=== PATIENT | female | born 1945 | race Caucasian/White ===

== ENCOUNTER 2019-08-10 10:26 | Inpatient (IN) ==
[2019-08-10 12:08] LABS: INR 1.1 (0.9-1.1); Prothrombin Time 11.3 Seconds (9.0-12.0)
[2019-08-10 12:09] LABS: Hematocrit (blood only) 36.4 % (37-47); Hemoglobin 11.7 g/dL (12.0-16.0); Mean Corpuscular Hemoglobin 30.1 pg (25-34); Mean Corpuscular Hgb Conc 32.1 g/dL (32-36); Mean Corpuscular Volume 93.6 fL (80-100); RDW Coefficient of Variation 14.9 % (11.5-14.5); RDW Standard Deviation 50.7 fL (36.4-46.3); Red Blood Count 3.89 M/uL (4.2-5.4); White Blood Count 23.72 K/uL (4.8-10.8)
--- NOTE | 2019-08-10 12:09 | XRay Report ---
XR chest 1V portable CLINICAL HISTORY: 73 years-old Female presenting with lightheaded. TECHNIQUE: Portable upright AP view of the chest was obtained. COMPARISON: 03/20/2006. FINDINGS: Atherosclerosis of the aortic arch. Cardiac silhouette top normal in size. Mildly low lung volumes. N o focal opacity. No large effusion or pneumothorax. Degenerative changes of the thoracic spine. Degen erative changes of the glenohumeral joints. Upper abdomen normal. IMPRESSION: 1. Mildly low lung lines. Otherwise no acute cardiopulmonary disease. Electronically signed by: Ben Canada M.D. 08/10/2019 12:07 PM
[2019-08-10 12:12] LABS: BUN Creatinine Ratio 45.4 (10-20); Calcium 8.9 mg/dl (8.5-10.1); Creatinine Clr Calc Pharmacy 81.3 ml/min; Est GFR (African American) 77.7; Potassium 4.1 mmol/L (3.5-5.1)
[2019-08-10 12:23] LABS: Mean Platelet Volume 13.7 fL (7.4-10.4); Platelet Count 107 K/uL (130-400)
[2019-08-10 12:25] LABS: Albumin Globulin Ratio 0.9 (0.9-2); Bilirubin,Total 0.6 mg/dl (0.2-1); Globulin 3.3 gm/dl (2.5-4.0); Thyroid Stimulating Hormone 0.023 uIu/ml (0.300-4.500); Total Protein 6.3 gm/dl (6.4-8.2); Troponin I 0.065 ng/ml (0-0.045)
[2019-08-10] MEDS: SODIUM CHLORIDE 0.9% 1000ML 1,000 ML IV SCH ×3 (12:26→19:58)
[2019-08-10 12:55] LABS: Basophils # (auto) 0.02 K/uL (0-0.2); Basophils % (auto) 0.1 %; Immature Granulocytes # (auto) 0.06 K/uL (0.00-0.02); Immature Granulocytes % (auto) 0.3 %; Lymphocytes # (auto) 15.62 K/uL (1.2-3.4); Lymphocytes % (auto) 65.9 %; Monocytes # (auto) 0.38 K/uL (0.11-0.59); Monocytes % (auto) 1.6 %; Neutrophils # (auto) 7.64 K/uL (1.4-6.5); Neutrophils % (auto) 32.1 %; Smudge Cells Present
[2019-08-10] MEDS ORDERED: IOVERSOL 100ml IV PRN (13:09)
--- NOTE | 2019-08-10 13:23 | CT Scan Report ---
CT abd pelvis IV con only CLINICAL HISTORY: 73 years-old Female presenting with gi bleed, leukocytosis. TECHNIQUE: Multidetector CT of the abdomen and pelvis was performed after the administration of intra venous contrast. IV contrast: 94 mL of Optiray 320. One or more dose lowering techniques were used co nsistent with the principles of ALARA (as low as reasonably achievable), including automatic exposure control, mA or kV adjustment to individual patient size, and/or use of iterative reconstruction. COMPARISON: None. CT DOSE (mGy.cm): The estimated cumulative dose is 1723.29 mGy.cm. FINDINGS: [place] [employer] topogram: Cholecystectomy clips. Lung bases: Normal heart size. Coronary artery and aortic valve calcification. No pericardial or pleu ral effusion. Minimal dependent changes likely atelectasis. Liver: Cirrhotic morphology of the liver with hypertrophy of the left hepatic lobe. Biliary: No intrahepatic or extrahepatic biliary ductal dilatation. Gallbladder surgically absent. Pancreas: Mild parenchymal atrophy. Spleen: Top normal in size measuring 13.1 cm in maximal sagittal dimension. Adrenal glands: Normal. 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 Righ t kidney normal. No nephrolithiasis or hydronephrosis. Ureters nondistended. Bladder: Incompletely evaluated secondary to underdistention. Pelvic organs: Uterus and ovaries normal. Bowel: Normal appendix. No bowel obstruction. Unobstructed small bowel contained within the moderate sized umbilical hernia. Peritoneal cavity: No free fluid or intraperitoneal gas. Lymph nodes: Mildly prominent portal caval and tigre hepatal lymph nodes likely reactive. No patholog ically enlarged lymph nodes in the abdomen or pelvis. Vasculature: Atherosclerosis of the normal caliber abdominal aorta. IVC patent. Paraesophageal and ga stric varices. Abdominal wall: Recanalization of the periumbilical vein. Musculoskeletal: Degenerative changes of the spine. IMPRESSION: 1. Cirrhosis with portal hypertension evidenced by varices and borderline splenomegaly. 2. Prominent gastric varices. This could be a potential site of gastrointestinal hemorrhage. 3. No other evidence of acute intra-abdominal pathology. Electronically signed by: Ben Canada M.D. 08/10/2019 1:22 PM
[2019-08-10] MEDS ORDERED: cefTRIAXone SODIUM 2,000 MG/70 ML BAG IV STA (13:35)
[2019-08-10] MEDS ORDERED: SODIUM CHLORIDE 0.9% 1000ML 1,000 ML IV ONE (13:45)
[2019-08-10 14:00] LABS: POC Urine Bilirubin Negative (Negative); POC Urine Blood 250 (Negative); POC Urine Glucose Normal (Normal); POC Urine Ketones Negative (Negative); POC Urine Leukocytes Negative (Negative); POC Urine Nitrite Negative (Negative); POC Urine Protein Trace (Negative); POC Urine Urobilinogen Normal (Normal); POC Urine pH 5 (4.5-7.5)
[2019-08-10] MEDS ORDERED: PANTOprazole 80 MG in DEXTROSE 5% 100 ML IV SCH (14:15)
[2019-08-10 14:24] LABS: Appearance Urine Clear (Clear); Bacteria Urine Automated Negative (Negative); Bilirubin Urine Negative (Negative); Blood Urine 3+ (Negative); Color Urine Yellow; Epithelial Cell Urine Auto >30 /lpf (0-5); Glucose Urine UA Negative (Negative); Ketones Urine Negative (Negative); Leukocyte Esterase Urine Negative (Negative); Nitrite Urine Negative (Negative); Protein Urine Negative (Negative); Specific Gravity Urine 1.039 (1.000-1.030); Urobilinogen Urine Negative (Negative)
[2019-08-10] MEDS ORDERED: PANTOprazole 40 MG in DEXTROSE 5% 100 ML IV SCH (14:30)
--- NOTE | 2019-08-10 15:17 | History & Physical Report ---
Date of Service August 10, 2019 Assessment & Plan (1) GI bleed: Complaints to have bright red rectal bleed this morning Noted to have black stool on rectal examination that was a strongly positive for blood CT of the abdomen and pelvis showed cirrhotic liver with esophageal and gastric varices Increasing BUN suggest upper GI bleed Epic note suggests that she was on diclofenac sodium as an outpatient Hemoglobin is noted to be 11.7 She will be admitted to telemetry unit H&H will be checked every 6 hourly with type and hold for 2 units Has been started on Protonix drip GI consulted (2) Cirrhosis of liver: No history of alcoholism and no history of prior liver disease Cirrhosis seems to be secondary to fatty liver/idiopathic/Karimi Evidence of esophageal and gastric paresis on CAT scan of the abdomen pelvis LFTs are normal GI consulted (3) Leukocytosis: Noted to have white count of 23,000 Denies any acute infection or fever Could be secondary to UTI and/or stress related Urine and blood culture have been sent She was started with intravenous ceftriaxone and will change it to Cipro Noted to have high lactic acid of 2.8 She has been getting boluses of IV fluid We will repeat the lactate in 6 hours (4) Reflux esophagitis: Has not been taking any medications for that Has been on baby aspirin Epic note says that she has been on diclofenac sodium for arthritis (5) Hypothyroidism: Her TSH is minimally low We will hold thyroxine replacement for now Likely to start thyroxine at 150 mcg a day on discharge (6) Hypertension: Blood pressure is controlled We will continue current medications DVT prophylaxis SCDs for now CODE STATUS Full History of Present Illness Chief Complaint: Dizziness with bright red blood per rectum this morning Primary Care Provider: Bhupinder Warren MD She is a 73-year-old obese female with significant past medical history of major depression, esophageal reflux, and hypertension has been complaining of dizziness early this morning with the bright red blood per rectum following bowel movement. She is much worried about bright red blood per rectum and she thought it could be due to hemorrhoids. She did not have any abdominal pain associated with it but she admits to have occasional epigastric discomfort and she feels that is due to her reflux disease. She denies any nausea and/or vomiting, any black stool before, any chest pain and/or shortness of breath, any chest pain and/or palpitation, any headache or blurred vision or numbness or tingling in the extremities and denies any problem with her urine. No fever but she did have chills with some sweating last night. In the ER she was noted to have leukocytosis with borderline increase lactic acid and CT of the abdomen and pelvis did show cirrhotic liver with esophageal and gastric varices from that point she was admitted to telemetry unit for continuation of care. Allergies Allergy/AdvReac Type Severity Reaction Status Date / Time No Known Allergies Allergy Unknown Verified 08/10/19 11:12 Home Medications Home Medications Medication Instructions Recorded Confirmed Type allopurinol 100 mg PO DAILY@1200 08/10/19 08/10/19 History aspirin 81 mg PO DAILY@1200 08/10/19 08/10/19 History atenolol 100 mg PO DAILY@1200 08/10/19 08/10/19 History hydrochlorothiazide 25 mg PO DAILY@1200 08/10/19 08/10/19 History levothyroxine 175 mcg PO QAM 08/10/19 08/10/19 History lisinopril 20 mg PO DAILY@1200 08/10/19 08/10/19 History paroxetine HCl 20 mg PO DAILY@1200 08/10/19 08/10/19 History Past Med/Surg History Medical History GI bleed Hypertension Hypothyroidism Major depression Reflux esophagitis Family History Other Family history non-contributory Social History Preferred Language: Kittitian marital status: / Current Living Situation: Alone current occupational status: retired Feels Safe at Home: Yes Smoking Status: Former smoker Review of Systems Review of Systems: All systems reviewed & are unremarkable except as noted in HPI & below Physical Exam Physical Exam: Lying in bed, very anxious Constitutional: well developed, well nourished, + ill appearing and + morbidly obese; no acute distress Eyes: PERRL, conjunctivae normal, anicteric sclerae ENMT: external ear and nose normal, oropharynx normal Neck: trachea midline, no thyromegaly Respiratory: normal respiratory effort; no respiratory distress Auscultation: lungs clear to auscultation bilaterally Cardiovascular: Rate/Rhythm: regular rate and regular rhythm Heart Sounds: no murmur Gastrointestinal (Abdomen): Inspection/Auscultation: abdomen normal to inspection and normal bowel sounds Percussion/Palpation: + abdomen tender (Epigastrium) and abdomen soft; no guarding Musculoskeletal: No acute arthritis in any joints Neurologic: patellar DTR's 2+ bilat, sensation intact Psychiatric: A+Ox3, euthymic affect Lymphatic: no cervical or axillary lymphadenopathy Results & Data Vital Signs (Past 12 Hours) Vital Signs Temp Pulse Pulse Resp BP BP Pulse Ox 08/10/19 14:34 91 H 20 130/69 96 08/10/19 13:59 81 20 103/61 96 08/10/19 12:30 85 18 103/76 95 08/10/19 11:19 96 H 20 106/70 96 08/10/19 10:36 36.9 C 86 20 149/80 H 96 Laboratory Results Short CBC 08/10/19 Range/Units 11:38 WBC 23.72 H (4.8-10.8) K/uL Hgb 11.7 L (12.0-16.0) g/dL Hct 36.4 L (37-47) % Plt Count 107 L (130-400) K/uL BMP 08/10/19 11:38 Sodium 142 Potassium 4.1 Chloride 107 Carbon Dioxide 28 BUN 39 H Creatinine 0.86 Glucose 122 H Calcium 8.9 Cardiac Enzymes 08/10/19 Range/Units 11:38 Troponin I 0.065 H* (0-0.045) ng/ml Liver Function 08/10/19 Range/Units 11:38 Total Bilirubin 0.6 (0.2-1) mg/dl AST 23 (15-37) U/L ALT 23 (12-78) U/L Alkaline Phosphatase 59 (45-117) U/L Albumin 3.0 L (3.4-5.0) gm/dl Urine 08/10/19 Range/Units 13:50 Urine Color Yellow Urine Appearance Clear (Clear) Urine pH 5.0 (4.5-7.5) Ur Specific [place] 1.039 H (1.000-1.030) Urine Protein Negative (Negative) Urine Glucose (UA) Negative (Negative) Medications Administered Current Inpatient Medications Sodium Chloride (Nss 1000ml) 1,000 mls @ 250 mls/hr IV .Q4H CHAD Stop: 09/09/19 11:29 Last Admin: 08/10/19 12:26 Dose: 250 mls/hr Documented by: Pantoprazole Sodium 40 mg/ (Dextrose) 100 mls @ 20 mls/hr IV Q5H CHAD Stop: 08/10/19 19:29 Ioversol (Optiray 320 100ml) 94 ml IV ONCE PRN PRN Reason: Interaction Checking Stop: 08/14/19 13:08 Last Admin: 08/10/19 13:10 Dose: 94 ml Documented by: Code Status & VTE Plan VTE Prophylaxis Plan VTE Prophylaxis will be ordered: Yes
[2019-08-10 15:46] LABS: Hematocrit (blood only) 33.1 % (37-47); Hemoglobin 10.6 g/dL (12.0-16.0)
--- NOTE | 2019-08-10 16:00 | Gastrointestinal Consultation ---
Date of Consultation August 10, 2019 Assessment & Plan (1) GI bleed: EGD tomorrow. Will also have pt prep for colonoscopy. If good response to prep then will go forward with colonoscopy tomorrow as well. If poor prep then will consider moving colonoscopy to Wednesday. Present on Admission?: Yes (2) Leukocytosis: Please consider possible UTI or other source of infection. Present on Admission?: Yes Supervising Physician Co-Signing Physician Notes I saw and evaluated the patient with Ms. Rivera. She presents with a single episode of hematochezia this am, no melena, no hematemesis. A CT was obtained and is suggestive of cirrhosis with portal hypertension. PE: Plesant female, NAD No abdominal tenderness No slceral icterus Impression: patient with hematochezia, symptoms most consistent with an anorectal etiology. given the imaging we would recommend furhter evalaution with EGD and colonosocopy. I have disucssed the risks to include bleeding, infection, perforation, pain and need for f/u studies. Recomendations: EGD/colonosocopy on wednesday agree with empiric use of octreotide/PPI drip and abx coverage consider further evalaution with a UA and Chest x-ray to look for signs of infection. History of Present Illness Reason for Consultation: Bright red blood rectally Requesting Physician: Dr. Golden Attending Physician: Dr. Golden History of Present Illness Ms. Suarez is a 73 yr old female patient of Dr. Warren with a hx of major depression, esophageal reflux, and hypertension who presented to the ED this morning for rectal bleeding. She had chills/sweats all last night then this morning, she toileted as she normally would each morning and passed a BM with bright red blood that appeared bright to dark red. She did not have any clots. No abdominal pain or cramping. She did feel dizzy and nauseated while walking to the toilet and during toileting. She was able to dress herself and walk to her sofa. Then she called EMS and they helped her walk to the ambulance. She denies any black BMs and has not had any rectal bleeding previously. On arrival, Hb 11.7. Recheck 10.6. BUN is 39, Cr 0.86. WBC elevated at 23. She is afebrile. A CT was completed which showed cirrhosis and gastric varices. Platelets are 107.She is awake, alert, oriented and normotensive. BP is 76. Pulse ox 97 on room air. On exam: obese, non distended, non tender abdomen. Rectal exam with hemorrhoids with some brown stool on return after digital exam. Allergies Allergy/AdvReac Type Severity Reaction Status Date / Time No Known Allergies Allergy Unknown Verified 08/10/19 11:12 Home Medications Home Medications Medication Instructions Recorded Confirmed Type allopurinol 100 mg PO DAILY@1200 08/10/19 08/10/19 History aspirin 81 mg PO DAILY@1200 08/10/19 08/10/19 History atenolol 100 mg PO DAILY@1200 08/10/19 08/10/19 History hydrochlorothiazide 25 mg PO DAILY@1200 08/10/19 08/10/19 History levothyroxine 175 mcg PO QAM 08/10/19 08/10/19 History lisinopril 20 mg PO DAILY@1200 08/10/19 08/10/19 History paroxetine HCl 20 mg PO DAILY@1200 08/10/19 08/10/19 History Patient History Medical History GI bleed Hypertension Hypothyroidism Major depression Reflux esophagitis Family History Other Family history non-contributory Social History Preferred Language: Lao marital status: / Current Living Situation: Alone current occupational status: retired Feels Safe at Home: Yes Smoking Status: Former smoker Review of Systems Constitutional: + chills, + sweats and + weakness; no body aches Eyes: no eye pain and no itchy eyes no icterus Ear, Nose, Mouth, Throat: + dizziness + sinus congestion Respiratory: no cough, no dyspnea and no wheezing Cardiovascular: no chest pain, no palpitations, no syncope (did not faint but felt dizzy/lightheaded. ) and no edema Gastrointestinal: no abdominal pain, no early satiety, no vomiting, no constipation and no melena Genitourinary: no dysuria, no urinary hesitancy and no hematuria Integumentary: no rash, no lesions, no pruritus and no yellowing of the skin Neurologic: no falls, no numbness and no tremor(s) Psychiatric: no behavioral changes Endocrine: no fatigue, no polydipsia, no polyphagia and no polyuria Physical Exam Constitutional: WD/WN, vitals as above + obese; no acute distress Eyes: PERRL, conjunctivae normal, anicteric sclerae ENMT: external ear and nose normal, oropharynx normal Respiratory: normal respiratory effort, lungs clear to auscultation Cardiovascular: RRR, no murmur, no edema Gastrointestinal (Abdomen): normal bowel sounds, soft, nontender, no hepatosplenomegaly Skin: no rashes, warm and dry Neurologic: PERRL, EOMI, accommodation nl, no face palsy, no dysarthria Psychiatric: A+Ox3, euthymic affect Lymphatic: no cervical or axillary lymphadenopathy Results & Data Vital Signs (Past 12 Hours) Vital Signs Temp Pulse Pulse Resp BP BP Pulse Ox 08/10/19 15:44 62 14 114/80 100 08/10/19 14:34 91 H 20 130/69 96 08/10/19 13:59 81 20 103/61 96 08/10/19 12:30 85 18 103/76 95 08/10/19 11:19 96 H 20 106/70 96 08/10/19 10:36 36.9 C 86 20 149/80 H 96 (1) GI bleed GI bleed type/associated pathology: unspecified gastrointestinal hemorrhage type Qualified Code(s): K92.2 - Gastrointestinal hemorrhage, unspecified (2) Leukocytosis Leukocytosis type: unspecified Qualified Code(s): D72.829 - Elevated white blood cell count, unspecified
[2019-08-10] MEDS: CIPROFLOXACIN 400 MG/200 ML BAG IV SCH (17:26)
[2019-08-10] MEDS ORDERED: LAVAGE SOLUTION 4000ML PO ONE (18:00)
[2019-08-10] MEDS ORDERED: BISACODYL 5 MG TABEC PO ONE (18:00)
[2019-08-10] MEDS: PANTOprazole 40 MG in DEXTROSE 5% 100 ML IV SCH ×2 (19:57→23:03)
[2019-08-10] MEDS ORDERED: INFLUENZA ADMINISTRATION CHARGE ONE (22:00)
[2019-08-10] MEDS ORDERED: INFLUENZA VACCINE HIGH DOSE 65+ 0.5 ML SYR IM ONE (22:00)
[2019-08-11] MEDS: SODIUM CHLORIDE 0.9% 1000ML 1,000 ML IV SCH ×2 (03:45→12:40)
[2019-08-11] MEDS: PANTOprazole 40 MG in DEXTROSE 5% 100 ML IV SCH ×4 (03:45→20:33)
[2019-08-11 04:12] LABS: Hematocrit (blood only) 27.8 % (37-47); Hemoglobin 9.2 g/dL (12.0-16.0); Mean Corpuscular Hemoglobin 30.5 pg (25-34); Mean Corpuscular Hgb Conc 33.1 g/dL (32-36); Mean Corpuscular Volume 92.1 fL (80-100); Mean Platelet Volume 13.5 fL (7.4-10.4); Platelet Count 105 K/uL (130-400); RDW Coefficient of Variation 15.1 % (11.5-14.5); RDW Standard Deviation 50.7 fL (36.4-46.3); Red Blood Count 3.02 M/uL (4.2-5.4); White Blood Count 20.63 K/uL (4.8-10.8)
[2019-08-11 04:19] LABS: BUN Creatinine Ratio 45.4 (10-20); Calcium 8.2 mg/dl (8.5-10.1); Creatinine Clr Calc Pharmacy 152.5 ml/min; Est GFR (African American) 88.8; Est GFR (Non-African American) 76.6; Potassium 3.3 mmol/L (3.5-5.1)
[2019-08-11 04:39] LABS: Basophils # (auto) 0.02 K/uL (0-0.2); Basophils % (auto) 0.1 %; Eosinophils # (auto) 0.01 K/uL (0-0.5); Immature Granulocytes # (auto) 0.05 K/uL (0.00-0.02); Immature Granulocytes % (auto) 0.2 %; Lymphocytes # (auto) 15.47 K/uL (1.2-3.4); Monocytes % (auto) 2.4 %; Neutrophils # (auto) 4.58 K/uL (1.4-6.5); Neutrophils % (auto) 22.3 %
[2019-08-11] MEDS: CIPROFLOXACIN 400 MG/200 ML BAG IV SCH ×2 (06:02→17:34)
--- NOTE | 2019-08-11 09:19 | Hospitalist Progress Note ---
Date of Service August 11, 2019 Assessment & Plan (1) GI bleed: -reports bright red rectal bleed in AM x1 on admission day on 08/10/19 -Noted to have black stool on rectal examination that was a strongly positive for blood -CT of the abdomen and pelvis showed cirrhotic liver with esophageal and gastric varices -concerns for upper GI bleed -Epic note suggests that she was on diclofenac sodium as an outpatient -Hemoglobin is noted to be 11.7 on admission -following CBC closely and on IV protonix -Gastroenterology is following the patient, awaiting upper endoscopy to be performed (2) Cirrhosis of liver: -No history of alcoholism and no history of prior liver disease -Cirrhosis seems to be secondary to fatty liver/idiopathic/Karimi -Evidence of esophageal and gastric paresis on CAT scan of the abdomen pelvis -LFTs are normal -Gastroenterology is following the patient (3) Leukocytosis: possible urinary tract infection -Noted to have white count of 23,000 -leukocytosis possibly from urinary tract infection, other underlying infection, or non-infectious inflammation/stress reaction -Urine with Escherichia coli [place] Count >100,000 CFU/ml -follow blood cultures -was given ceftriaxone in the ED and then changed to ciprofloxacin; will add ceftriaxone for now with the ciprofloxacin and continue to monitor and adjust antibiotics based on culture results Elevated lactic acid -Noted to have high lactic acid of 4.1 on 07/31/19 admission -antibiotics and IV fluids with downtrending lactic acid (4) Reflux esophagitis: -Has not been taking any medications for that -Has been on baby aspirin -Epic note says that she has been on diclofenac sodium for arthritis -currently NPO while awaiting upper endocospy (5) Hypothyroidism: -History of Hypothyroidism and at home on Levothyroxine as 175 mcg daily -However TSH is extremely low as 0.023 -hold off thyroid supplements for now as it appears at this time based on TSH that patient is on too much thyroid supplements -will check free T4 (6) Hypertension: -Blood pressure is controlled -home medications of atenolol 100 mg daily, HCTZ 25 mg daily, and lisinopril 20 mg daily -continuing atenolol and HCTZ for now DVT prophylaxis: SCDs CODE STATUS Full Subjective Patient denies any blood per rectum since coming to the hospital. the blood per rectum was x 1 episode at home. patient denies abdominal pain. denies vomiting. denies diarrhea. no blood with urination. no dizziness. no lightheadedness. Patient currently is NPO while awaiting to be scoped by gastroenterology Review of Systems Review of Systems: All systems reviewed & are unremarkable except as noted in HPI & below Physical Exam Constitutional: + obese and comfortable Eyes: PERRL, conjunctivae normal, anicteric sclerae EOM intact bilaterally ENMT: external ear and nose normal, oropharynx normal Neck: normal visual inspection Respiratory: normal respiratory effort, lungs clear to auscultation Cardiovascular: RRR, no murmur, no edema Gastrointestinal (Abdomen): normal bowel sounds, soft, nontender, no hepatosplenomegaly Musculoskeletal: no cyanosis or clubbing, extremities motor strength 5/5 Head/Neck/Chest: normocephalic and head atraumatic Neurologic: PERRL, EOMI, accommodation nl, no face palsy, no dysarthria CN's II-XI intact bilaterally Psychiatric: A+Ox3, euthymic affect Results & Data Vital Signs (Past 12 Hours) Vital Signs Temp Pulse Pulse Resp BP Pulse Ox 08/11/19 07:36 36.8 C 85 18 106/73 95 08/11/19 03:30 37.1 C 84 18 109/58 L 95 08/11/19 00:27 36.8 C 87 20 105/69 94 08/11/19 00:00 84
[2019-08-11 09:28] LABS: Hematocrit (blood only) 27.8 % (37-47); Hemoglobin 9.1 g/dL (12.0-16.0); Mean Corpuscular Hemoglobin 30.1 pg (25-34); Mean Corpuscular Hgb Conc 32.7 g/dL (32-36); Mean Corpuscular Volume 92.1 fL (80-100); Mean Platelet Volume 12.6 fL (7.4-10.4); Nucleated RBC # (auto) 0.21 K/uL (0-0); Nucleated RBC % (auto) 1.1 %; Platelet Count 89 K/uL (130-400); RDW Coefficient of Variation 15.2 % (11.5-14.5); RDW Standard Deviation 51.1 fL (36.4-46.3); Red Blood Count 3.02 M/uL (4.2-5.4); White Blood Count 18.68 K/uL (4.8-10.8)
[2019-08-11] MEDS: POTASSIUM CHLORIDE / WTR 10 MEQ/100 ML PLCT IV SCH ×2 (09:42→11:21)
--- NOTE | 2019-08-11 10:05 | Gastroenterology Progress Note ---
Date of Service August 11, 2019 Assessment & Plan (1) GI bleed: EGD and colonoscopy today. (2) Leukocytosis: Please consider possible UTI or other source of infection. Supervising Physician Co-Signing Physician Notes I saw and evaluated the patient. We are planning to do upper endoscopy and probable colonoscopy today. It appears that she may have had dark stool last e vening, perhaps this is an upper GI source after all. Hopefully we can determine this with the upcoming exams later today. Subjective Mr. Lillie Suarez is a 73 yr old female with GERD, hypothyroidism, hypotension who was admitted yesterday for rectal bleeding. CT on arrival with previously undiagnosed cirrhosis with gastric varices. Hb 11.7 on arrival, 9.1 this morning. Cr 39->35, normal creatinine. Pt reports clear BMs with bowel prep for EGD/Colonoscopy today. She has remained hemodynamically stable. WBC elevated w/o clear sign/site of infection though she has had a bit of sinus congestion, no cough or chest pressure/pain. She did have brief dizziness at the time of passing one painless bloody BM yesterday, but non since then. BP 106/73 while resting HR 85. Review of Systems Review of Systems: ROS: Gen: one episode of dizziness yesterday w/o syncope Eyes: No eye redness, or pain, no recent vision changes Resp: No SOB, no cough Cardio: No palpitations/irregular beats, no chest pain GI: + rectal bleeding, one episdoe yesterday, No abdominal pain, no nausea/vomiting : Denies pain on urination Skin: No jaundice, itching or new rashes Constitutional: + chills, + sweats and + weakness; no body aches Eyes: no icterus Ear, Nose, Mouth, Throat: + dizziness + sinus congestion Physical Exam Constitutional: WD/WN, vitals as above + obese; no acute distress Eyes: PERRL, conjunctivae normal, anicteric sclerae ENMT: external ear and nose normal, oropharynx normal Respiratory: normal respiratory effort, lungs clear to auscultation Cardiovascular: RRR, no murmur, no edema Gastrointestinal (Abdomen): normal bowel sounds, soft, nontender, no hepatosplenomegaly Skin: no rashes, warm and dry Neurologic: PERRL, EOMI, accommodation nl, no face palsy, no dysarthria Psychiatric: A+Ox3, euthymic affect Lymphatic: no cervical or axillary lymphadenopathy Results & Data Vital Signs (Past 12 Hours) Vital Signs Temp Pulse Pulse Resp BP Pulse Ox 08/11/19 07:36 36.8 C 85 18 106/73 95 08/11/19 03:30 37.1 C 84 18 109/58 L 95 08/11/19 00:27 36.8 C 87 20 105/69 94 08/11/19 00:00 84 Diagnostic Findings CXR: Mildly low lung lines. Otherwise no acute cardiopulmonary disease. CT abd/pelvis with IV contrast only: 1. Cirrhosis with portal hypertension evidenced by varices and borderline splenomegaly. 2. Prominent gastric varices. This could be a potential site of gastrointestinal hemorrhage. 3. No other evidence of acute intra-abdominal pathology. Medications Administered Protonix drip, Cipro (1) GI bleed GI bleed type/associated pathology: unspecified gastrointestinal hemorrhage type Qualified Code(s): K92.2 - Gastrointestinal hemorrhage, unspecified (2) Leukocytosis Leukocytosis type: unspecified Qualified Code(s): D72.829 - Elevated white blood cell count, unspecified
[2019-08-11 10:20] LABS: Basophils # (auto) 0.03 K/uL (0-0.2); Basophils % (auto) 0.2 %; Eosinophils # (auto) 0.01 K/uL (0-0.5); Eosinophils % (auto) 0.1 %; Immature Granulocytes # (auto) 0.03 K/uL (0.00-0.02); Immature Granulocytes % (auto) 0.2 %; Lymphocytes # (auto) 13.62 K/uL (1.2-3.4); Lymphocytes % (auto) 72.9 %; Monocytes # (auto) 0.52 K/uL (0.11-0.59); Monocytes % (auto) 2.8 %; Neutrophils # (auto) 4.47 K/uL (1.4-6.5); Neutrophils % (auto) 23.8 %; Smudge Cells Present
[2019-08-11] MEDS ORDERED: PARoxetine HCl 20 MG TAB PO SCH (12:00)
[2019-08-11] MEDS ORDERED: ATENOLOL 50 MG TABLET PO SCH (12:00)
[2019-08-11] MEDS ORDERED: LISINOPRIL 20 MG TAB PO SCH (12:00)
[2019-08-11] MEDS ORDERED: cefTRIAXone SODIUM 2,000 MG in DEXTROSE 5% 50 ML IV SCH (14:00)
[2019-08-11] MEDS ORDERED: PROPOFOL IV EMULSION 10 MG/ML 20 ML VIAL IV ONE (14:00)
[2019-08-11] MEDS ORDERED: LIDOCAINE HCL 2% 2 ML VIAL/AMP(20MG/ML) INFIL ONE (14:00)
--- NOTE | 2019-08-11 14:02 | Anesthesiology Consultation ---
Date of Service August 11, 2019 Assessment & Plan (1) Encounter for pre-operative examination: Chart Review Chart Review: Acceptable Risk for Surgery and Patient NOT seen in Pre Admission Testing Consults Requested none History Surgery Operation Date: 08/11/19 13:50 Proposed Procedures p Colonoscopy and EGD Dr Tree Leavitt Height/Weight Height: 5 ft 4 in Weight: 135.5 kg Allergies Allergy/AdvReac Type Severity Reaction Status Date / Time No Known Allergies Allergy Unknown Verified 08/10/19 11:12 Medications Home Medications Medication Instructions Recorded Confirmed Last Taken allopurinol 100 mg PO DAILY@1200 08/10/19 08/10/19 08/09/19 aspirin 81 mg PO DAILY@1200 08/10/19 08/10/19 08/09/19 atenolol 100 mg PO DAILY@1200 08/10/19 08/10/19 08/09/19 hydrochlorothiazide 25 mg PO DAILY@1200 08/10/19 08/10/19 08/09/19 levothyroxine 175 mcg PO QA 08/10/19 08/10/19 08/10/19 lisinopril 20 mg PO DAILY@1200 08/10/19 08/10/19 08/09/19 paroxetine HCl 20 mg PO DAILY@1200 08/10/19 08/10/19 08/09/19 Active Medications Generic Name Dose Route Start Last Admin Trade Name Freq PRN Reason Stop Dose Admin Ciprofloxacin 400 mg in 200 mls @ 100 mls/hr 08/10/19 17:00 08/11/19 08:27 Cipro IV 08/15/19 15:29 Infused Q12H CHAD Infusion Protocol Pantoprazole Sodium 40 mg/ 100 mls @ 20 mls/hr 08/10/19 20:00 08/11/19 13:06 Dextrose IV 09/09/19 19:59 20 mls/hr Q5H CHAD Administration Sodium Chloride 1,000 mls @ 125 mls/hr 08/10/19 19:15 08/11/19 12:40 Nss 1000ml IV 08/11/19 19:14 125 mls/hr .Q8H CHAD Administration Ioversol 94 ml 08/10/19 13:09 08/10/19 13:10 Optiray 320 100ml IV 08/14/19 13:08 94 ml ONCE PRN Administration Interaction Checking NPO Date Last Intake of Fluids: 08/10/19 Time Last Intake of Fluids: 23:59 Date Last Intake of Solids: 08/09/19 Time Last Intake of Solids: 18:00 Past Medical History Medical History GI bleed Hypertension Hypothyroidism Major depression Reflux esophagitis Past Family History Family History Other Family history non-contributory Social History Smoking Status: Former smoker Do You Dip or Chew Tobacco: No Hx Alcohol Use: Yes Alcohol type: beer alcohol intake frequency: other Alcohol Intake Frequency Comment: 1-2 12 ounce beers per year Hx Substance Use: No Physical Exam Vital Signs Last Vital Signs Temp 36.5 C 08/11/19 13:57 Pulse 89 08/11/19 13:57 Resp 18 08/11/19 13:57 BP 134/81 08/11/19 13:57 Pulse Ox 97 08/11/19 13:57 Testing Laboratory Results 08/11/19 09:14 08/11/19 03:26 PT 11.3 Seconds (9.0-12.0) 08/10/19 11:38 INR 1.1 (0.9-1.1) 08/10/19 11:38 Urine Color Yellow 08/10/19 13:50 Urine Appearance Clear (Clear) 08/10/19 13:50 Urine pH 5.0 (4.5-7.5) 08/10/19 13:50 Ur Specific [place] 1.039 (1.000-1.030) H 08/10/19 13:50 Urine Protein Negative (Negative) 08/10/19 13:50 Urine Glucose (UA) Negative (Negative) 08/10/19 13:50 Urine Ketones Negative (Negative) 08/10/19 13:50 Urine Nitrite Negative (Negative) 08/10/19 13:50 Ur Leukocyte Esterase Negative (Negative) 08/10/19 13:50 Urine WBC (Auto) 1-5 /hpf (0-5) 08/10/19 13:50 Urine RBC (Auto) 5-10 /hpf (0-4) H 08/10/19 13:50 U Hyaline Cast (Auto) 1-5 /lpf (0-5) 08/10/19 13:50 U Epithel Cells (Auto) >30 /lpf (0-5) H 08/10/19 13:50 Urine Bacteria (Auto) Negative (Negative) 08/10/19 13:50 Blood Type A Negative 08/10/19 15:34 Antibody Screen NEGATIVE 08/10/19 15:34 08/10/19 13:50 Urine Culture - Preliminary Urine,Clean Catch Escherichia coli
[2019-08-11] MEDS ORDERED: ATROPINE SULFATE 0.1 MG/ML 10ML SYR IV PRN (14:05)
[2019-08-11] MEDS ORDERED: ePHEDrine sulfate 50 MG/ML AMP IV PRN (14:05)
--- NOTE | 2019-08-11 14:44 | GI REPORT ---
Patient Name: Lillie Suarez Procedure Date: 08/11/2019 2:08 PM Date of : 1945 Admit Type: Inpatient Age: 73 Gender: Female Attending MD: Matt Leavitt DO Procedure: Colonoscopy Providers: Matt Leavitt DO Referring MD: Matt Leavitt DO Indications: Hematochezia Medicines: Monitored Anesthesia Care Complications: No immediate complications. Estimated blood loss: Minimal. Estimated Blood Loss: Estimated blood loss was minimal. Procedure: Pre-Anesthesia Assessment: - Prior to the procedure, a History and Physical was performed, and patient medications, allergies and sensitivities were reviewed. The patient's tolerance of previous anesthesia was reviewed. - The risks and benefits of the procedure and the sedation options and risks were discussed with the patient. All questions were answered and informed consent was obtained. - Patient identification and proposed procedure were verified prior to the procedure by the physician, the nurse and the broker in charge. The procedure was verified in the procedure room. - Pre-procedure physical examination revealed no contraindications to sedation. - ASA Grade Assessment: IV - A patient with severe systemic disease that is a constant threat to life. - After reviewing the risks and benefits, the patient was deemed in satisfactory condition to undergo the procedure. - The anesthesia plan was to use monitored anesthesia care (MAC). - Immediately prior to administration of medications, the patient was re-assessed for adequacy to receive sedatives. - The heart rate, respiratory rate, oxygen saturations, blood pressure, adequacy of pulmonary ventilation, and response to care were monitored throughout the procedure. - The physical status of the patient was re-assessed after the procedure. After I obtained informed consent, the scope was passed under direct vision. Throughout the procedure, the patient's blood pressure, pulse, and oxygen saturations were monitored continuously. The Colonoscope was introduced through the anus and advanced to the terminal ileum. The colonoscopy was performed without difficulty. The patient tolerated the procedure well. The quality of the bowel preparation was good. Findings: The perianal and digital rectal examinations were normal. Pertinent negatives include normal sphincter tone. The terminal ileum appeared normal. A few medium-mouthed diverticula were found in the sigmoid colon. Internal hemorrhoids were found during retroflexion. The hemorrhoids were mild. The exam was otherwise without abnormality. Impression: - The examined portion of the ileum was normal. - Mild diverticulosis in the sigmoid colon. - Internal hemorrhoids. - The examination was otherwise normal. - No specimens collected. Recommendation: - [facility]. - Repeat colonoscopy in 10 years for screening purposes. Matt Leavitt D.O. Matt Leavitt, 08/11/2019 2:44:10 PM This report has been signed electronically. Note Initiated On: 08/11/2019 2:08 PM Number of Addenda: 0 I attest to the content of the Intraoperative Record and orders documented therein, exceptions below {[id number]}
--- NOTE | 2019-08-11 14:46 | Communication Note ---
Date of Service: August 11, 2019 Patient underwent upper endoscopy and colonoscopy today for question of melena and hematochezia. The colonoscopy was notable for mild diverticulosis and internal hemorrhoids. The upper endoscopy was notable for very large gastric varices that are filling the gastric fundus. Given the history I wonder if the gastric varices were the cause of the patient's bleeding. I would recommend that she be referred to a tertiary center as she may benefit from placement of a TIPS.
--- NOTE | 2019-08-11 14:52 | Anesthesiology Progress Note ---
Date of Service August 11, 2019 Anesthesia Post Procedure Vital Signs Vital Signs: Temp Pulse Pulse Pulse Resp BP BP 08/11/19 14:39 82 18 108/71 08/11/19 13:57 36.5 C 89 18 134/81 08/11/19 11:41 36.8 C 87 18 143/82 H 08/11/19 08:00 78 08/11/19 07:36 36.8 C 85 18 106/73 08/11/19 03:30 37.1 C 84 18 109/58 L 08/11/19 00:27 36.8 C 87 20 105/69 08/11/19 00:00 84 08/10/19 17:15 37.3 C 85 16 127/84 08/10/19 16:17 81 20 123/99 08/10/19 15:44 62 14 114/80 Pulse Ox 08/11/19 14:39 97 08/11/19 13:57 97 08/11/19 11:41 94 08/11/19 08:00 08/11/19 07:36 95 08/11/19 03:30 95 08/11/19 00:27 94 08/11/19 00:00 08/10/19 17:15 16 L 08/10/19 16:17 95 08/10/19 15:44 100 Transfer of Care Handoff Completed per policy Notes Mental Status: alert / awake / arousable Patient Amnestic to Procedure: Yes Nausea / Vomiting: adequately controlled Pain: adequately controlled Airway Patency, RR, SpO2: stable & adequate BP & HR: stable & adequate Hydration State: stable & adequate Anesthetic Complications: no major complications apparent and Pt Satisfied with anesthetic care
[2019-08-11] MEDS ORDERED: OCTREOTIDE ACETATE 100 MCG in SYRINGE 9 ML IV STA (15:09)
[2019-08-11] MEDS ORDERED: OCTREOTIDE ACETATE 500 MCG in 0.9 % SODIUM CHLORIDE 100 ML IV SCH (15:15)
--- NOTE | 2019-08-11 15:28 | Discharge Summary ---
Date of Service August 11, 2019 Admission HPI Per Admitting Provider She is a 73-year-old obese female with significant past medical history of major depression, esophageal reflux, and hypertension has been complaining of dizziness early this morning with the bright red blood per rectum following bowel movement. She is much worried about bright red blood per rectum and she thought it could be due to hemorrhoids. She did not have any abdominal pain associated with it but she admits to have occasional epigastric discomfort and she feels that is due to her reflux disease. She denies any nausea and/or vomiting, any black stool before, any chest pain and/or shortness of breath, any chest pain and/or palpitation, any headache or blurred vision or numbness or tingling in the extremities and denies any problem with her urine. No fever but she did have chills with some sweating last night. In the ER she was noted to have leukocytosis with borderline increase lactic acid and CT of the abdomen and pelvis did show cirrhotic liver with esophageal and gastric varices from that point she was admitted to telemetry unit for continuation of care. Admission Exam Per Admitting Provider Physical Exam Physical Exam: Lying in bed, very anxious Constitutional: well developed, well nourished, + ill appearing and + morbidly obese; no acute distress Eyes: PERRL, conjunctivae normal, anicteric sclerae ENMT: external ear and nose normal, oropharynx normal Neck: trachea midline, no thyromegaly Respiratory: normal respiratory effort; no respiratory distress Auscultation: lungs clear to auscultation bilaterally Cardiovascular: Rate/Rhythm: regular rate and regular rhythm Heart Sounds: no murmur Gastrointestinal (Abdomen): Inspection/Auscultation: abdomen normal to inspection and normal bowel sounds Percussion/Palpation: + abdomen tender (Epigastrium) and abdomen soft; no guarding Musculoskeletal: No acute arthritis in any joints Neurologic: patellar DTR's 2+ bilat, sensation intact Psychiatric: A+Ox3, euthymic affect Lymphatic: no cervical or axillary lymphadenopathy Principal Diagnosis Gastrointestinal bleed, Cirrhosis of liver, Esophageal varices, Hemorrhoids, Leukocytosis, Elevated Lactic Acid, Hypothyroidism, Hypertension Discharge Exam Constitutional + obese and comfortable Eyes PERRL, conjunctivae normal, anicteric sclerae EOM intact bilaterally ENMT external ear and nose normal, oropharynx normal Neck normal visual inspection Respiratory normal respiratory effort, lungs clear to auscultation Cardiovascular RRR, no murmur, no edema Gastrointestinal (Abdomen) normal bowel sounds, soft, nontender, no hepatosplenomegaly Musculoskeletal no cyanosis or clubbing, extremities motor strength 5/5 Head/Neck/Chest: normocephalic and head atraumatic Neurologic PERRL, EOMI, accommodation nl, no face palsy, no dysarthria CN's II-XI intact bilaterally Psychiatric A+Ox3, euthymic affect Discharge Data Allergies Allergy/AdvReac Type Severity Reaction Status Date / Time No Known Allergies Allergy Unknown Verified 08/10/19 11:12 Consultations 08/10/19 14:13 ED Decision to Admit Stat 08/10/19 15:20 Consult Gastroenterology Stat Procedures Performed Operation Date: 08/11/19 13:50 Actual Procedures p Esophagogastroduodenoscopy(Not Applicable) - Matt Leavitt s Colonoscopy(Not Applicable) - Matt Leavitt Ordered Studies 08/10/19 12:30 CT abd pelvis IV con only Stat Hospital Course (1) GI bleed: -reports bright red rectal bleed in AM x1 on admission day at home on 08/10/19 -Noted to have black stool on rectal examination that was a strongly positive for blood -CT of the abdomen and pelvis showed cirrhotic liver with esophageal and gastric varices -concerns for upper GI bleed -Epic note suggests that she was on diclofenac sodium as an outpatient -Hemoglobin is noted to be 11.7 on admission -patient's hemoglobin have been near 10 or above. She has not had yet again another reported episode of blood in the stools -upper endoscopy and colonoscopy performed on 08/11/19 -colonoscopy performed by Gastroneterology Dr Matt Leavitt on 08/11/19 only remarkable for Hemorrhoids -upper endoscopy performed by Gastroneterology Dr Matt Leavitt on 08/11/19 did found Type 1 gastroesophageal varices which extend along the less curvature; He did not find any areas of acute bleeding and no banding was required. However he wrote in his assessment and called hospitalist that patient should be evaluated at tertiary care center for possible Transjugular Intrahepatic Portosystemic Shunt (TIPSs). Dr. Leavitt explained that if patient were to bleed at [facility], there would be no locally available procedure to fix this. Hospitalist went down to endoscopy recovery room to discuss these recommendations and patient agree to transfer to [facility] in [place]. case discussed with Dr. Montano who is hospitalist at [facility] in [place] and she agrees to be the accepting hospitalist physician (2) Cirrhosis of liver: -No history of alcoholism and no history of prior liver disease -Cirrhosis seems to be secondary to fatty liver/idiopathic/Karimi -Evidence of esophageal and gastric paresis on CAT scan of the abdomen pelvis -LFTs and INR have been normal (3) Reflux esophagitis: -Has not been taking any medications for that -Has been on baby aspirin -Epic note says that she has been on diclofenac sodium for arthritis -upper endoscopy performed by Gastroneterology Dr. Matt Leavitt on 08/11/19 did not find esophagitis (4) Esophageal varices: -upper endoscopy performed by Gastroneterology Dr Matt Leavitt on 08/11/19 did found Type 1 gastroesophageal varices which extend along the less curvature; He did not find any areas of acute bleeding and no banding was required. However he wrote in his assessment and called hospitalist that patient should be evaluated at tertiary care center for possible Transjugular Intrahepatic Portosystemic Shunt (TIPSs). Dr. Leavitt explained that if patient were to bleed at [facility], there would be no locally available procedure to fix this. Hospitalist went down to endoscopy recovery room to discuss these recommendations and patient agree to transfer to [facility] in [place]. case discussed with Dr. Montano who is hospitalist at [facility] in [place] and she agrees to be the accepting hospitalist physician (5) Hemorrhoids: (6) Leukocytosis: possible urinary tract infection -Noted to have white count of 23,000 -leukocytosis possibly from urinary tract infection, other underlying infection, or non-infectious inflammation/stress reaction -Urine with Escherichia coli Roca Count >100,000 CFU/ml -blood cultures from 08/10/19 no growth to date after 24 hours -was given ceftriaxone in the ED and then changed to ciprofloxacin; currently has been on ceftriaxone 2000 mg dailywill add ceftriaxone for now with the ciprofloxacin 400 mg IV q12 hours (7) Elevated lactic acid level: -Noted to have high lactic acid of 4.1 on 08/10/19 admission -antibiotics and IV fluids with downtrending lactic acid -recent checked lactic acid 1.8 (8) Hypothyroidism: -History of Hypothyroidism and at home on Levothyroxine as 175 mcg daily -However TSH is extremely low as 0.023 -hold off thyroid supplements for now as it appears at this time based on TSH that patient is on too much thyroid supplements -free T4 normal as 1.41 -likely should continue Levothyroxine at lower doses when she completes further hospitalization evaluations at [facility] in [place] (9) Hypertension: -Blood pressure is controlled -home medications of atenolol 100 mg daily, HCTZ 25 mg daily, and lisinopril 20 mg daily -continuing atenolol and HCTZ for now DVT prophylaxis: SCDs CODE STATUS Full Total Time Total Time Spent Total Time Spent (In Minutes): 40 minutes Total Time Includes: Examination of the Patient, Discharge Planning, Medication Reconciliation and Communication With Other Providers Discharge Plan Discharge Items Reason For Visit: GI BLEED, CIRRHOSIS W GASTRIC AND ESPOHAGEAL VARIC Follow-up/Referrals: Bhupinder Warren MD [Primary Care Provider] - Addtl Attending Provider Instructions: Evaluation of Transjugular Intrahepatic Portosystemic Shunt Medications and DC Order Prescriptions: No Action levothyroxine 175 mcg tablet 175 mcg PO QAM RF: 0 atenolol 100 mg tablet 100 mg PO DAILY@1200 RF: 0 lisinopril 20 mg tablet 20 mg PO DAILY@1200 RF: 0 allopurinol 100 mg tablet 100 mg PO DAILY@1200 RF: 0 aspirin 81 mg Tablet,Delayed Release (Dr/Ec) 81 mg PO DAILY@1200 RF: 0 paroxetine HCl 20 mg tablet 20 mg PO DAILY@1200 RF: 0 hydrochlorothiazide 25 mg tablet 25 mg PO DAILY@1200 RF: 0 Admission Data Admit Date/Time: 08/10/19 14:46 Attending Provider: Tom Foster Admit Provider: Debi Golden Primary Care Provider: Bhupinder Warren Other Providers: Debi Golden ; Mary Rivera ; Amy Cyr ; Delaney Hernández ; Sergey Gaspar ; Matt Leavitt ; Louise Srinivasan ; Myrna Pizarro ; Jasson Rodrigues ; Malik Kim ; Karla Davis ; Disha Gordon ; Angie Walton ; Elvira Abreu ; Emelia Wray
[2019-08-11] MEDS ORDERED: FAMOTIDINE 10 MG/ML 2ML VIAL IV STA (21:45)
[2019-08-11] MEDS ORDERED: FAMOTIDINE 20 MG in SYRINGE 3 ML IV ONE (22:00)
--- NOTE | 2019-08-12 22:51 | Emergency Department Note ---
Entered by Tete Donaldson acting as a scribe for Aminata Grant DO History of Present Illness General Chief complaint: Illness Stated complaint: weakness/bloody stool Time Seen by Provider: 08/10/19 11:01 Source: patient History of Present Illness Onset (ago): day(s) (this morning) Location: abdomen Pain Consistency: + other (episode) Quality: + other (illness) Associated symptoms: + denies other symptoms (umbilical hernia ever being painful or hard, abdominal pain, hematuria, epistaxis), + fever/chills (chills, hot flashes) and + other (hematochezia, lightheaded, diarrhea, heart burn) The patient is a 73 year old female who presents to the Emergency Room with complaints of an episode of an illness starting this morning. The patient states that this morning she woke up and wasnt able to go back to sleep because she kept having hot flashes and then chills. She states that she finally got up to go to the restroom and felt lightheaded and dizzy. She reports that she then sat down and when she moved her bowels, she had diarrhea and a bunch of blood. She notes that she has internal and external hemorrhoids, but she has never had bleeding like this before. She notes that even though she had diarrhea today and didnt have to strain, yesterday she had a hard bowel movements that she had to strain to pass. The patient complains of having heart burn all night last night. She notes that she used to be on medications for it, but no longer is. The patient notes that she takes a baby aspirin daily. The patient denies a history of intestinal or bowel problems, her umbilical hernia ever being painful or hard, abdominal pain, hematuria, epistaxis, and a family history of bowel problems. States she has never had a colonoscopy. Home Medications Home Medications Medication Instructions Recorded Confirmed Type allopurinol 100 mg PO DAILY@1200 08/10/19 08/10/19 History atenolol 100 mg PO DAILY@1200 08/10/19 08/10/19 History lisinopril 20 mg PO DAILY@1200 08/10/19 08/10/19 History paroxetine HCl 20 mg PO DAILY@1200 08/10/19 08/10/19 History Allergies Allergy/AdvReac Type Severity Reaction Status Date / Time No Known Allergies Allergy Unknown Verified 11/14/19 11:12 Past Med/Surg History Medical History GI bleed Hypertension Hypothyroidism Major depression Reflux esophagitis Family History Other Family history non-contributory Social History Preferred Language: Yakut Communication Ability: Effective 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 current occupational status: retired Feels Safe at Home: Yes Safety Concerns: Feels Safe At This Time Smoking Status: Former smoker Do You Dip or Chew Tobacco: No ; Hx Alcohol Use: Yes Alcohol type: beer Hx Substance Use: No Review of Systems See HPI for pertinent positives & negatives. and A total of 10 systems reviewed and were otherwise negative Physical Exam Vital Signs Vital Signs - 24 hr 08/10/19 10:36 08/10/19 11:19 08/10/19 12:30 Temperature 36.9 C Temperature Source Oral Pulse Rate 86 Pulse Rate [Left] 96 H 85 Pulse Rhythm Regular Pulse Rhythm [Left] Regular Regular Pulse Strength Normal Respiratory Rate 20 20 18 Respiratory Effort / Characteristics Non-Labored Spontaneous Non-Labored Non-Labored Respiratory Depth Normal Normal Normal Respiratory Pattern Regular Regular Regular Blood Pressure 149/80 H Blood Pressure [Left Arm] 106/70 103/76 Blood Pressure Mean 103 Blood Pressure Mean [Left Arm] 82 85 Blood Pressure Position Sitting Pulse Oximetry 96 96 95 Oxygen Delivery Method Room Air Room Air Room Air Sepsis Recent Fever Within 48 Hours No Sepsis New/Unexplained Change in Mental Status No Sepsis Action Taken by Nursing No Action Required 08/10/19 13:59 08/10/19 14:34 08/10/19 15:44 Temperature Temperature Source Pulse Rate Pulse Rate [Left] 81 91 H 62 Pulse Rhythm Pulse Rhythm [Left] Regular Pulse Strength Respiratory Rate 20 20 14 Respiratory Effort / Characteristics Non-Labored Non-Labored Non-Labored Respiratory Depth Normal Normal Normal Respiratory Pattern Regular Regular Regular Blood Pressure Blood Pressure [Left Arm] 103/61 130/69 114/80 Blood Pressure Mean Blood Pressure Mean [Left Arm] 75 89 91 Blood Pressure Position Pulse Oximetry 96 96 100 Oxygen Delivery Method Room Air Room Air Room Air Sepsis Recent Fever Within 48 Hours Sepsis New/Unexplained Change in Mental Status Sepsis Action Taken by Nursing GENERAL: alert, well appearing, well nourished, no distress, non-toxic EYE EXAM: normal conjunctiva, PERRL and EOM's grossly intact OROPHARYNX: Poor dentition, no exudate, no erythema, lips, buccal mucosa, and tongue normal and mucous membranes are dry NECK: supple, no nuchal rigidity, no adenopathy, non-tender LUNGS: Decreased breath sounds. Normal chest wall mechanics, no w/r/r HEART: no murmurs, S1 normal and S2 normal ABDOMEN: Obese, abdomen soft, non-tender, normo-active bowel sounds, no masses, no rebound or guarding. RECTAL: One external hemorrhoid. Not thrombosed. No bleeding. Maroon/melanotic stool. Grossly heme positive. BACK: Back is symmetrical on inspection and there is no deformity, no midline tenderness, no CVA tenderness. SKIN: no rashes and no bruising UPPER EXTREMITIES: upper extremities are grossly normal. FROM, nml pulses b/l. LOWER EXTREMITIES: No pitting edema. FROM, nml pulses b/l. NEURO EXAM: Normal sensorium, cranial nerves II-XII grossly intact, normal speech, no gross weakness of arms, no gross weakness of legs. Course Course 1119: The patient was evaluated in room C9. A complete history and physical exam was performed. 1346: I reevaluated the patient and performed a rectal exam at this time. I discussed her test results and the treatment plan with her. She verbally agrees and understands. Pt denies any hx of liver problems or prior GI bleed. 1407: I discussed the [facility] He will evaluate the patient for further management. Administered Medications Discontinued Medications Atenolol (Tenormin) 100 mg PO DAILY@1200 CHAD Stop: 09/10/19 11:59 Last Admin: 08/11/19 15:34 Dose: 100 mg Documented by: [id number] Bisacodyl (Dulcolax) 10 mg PO NOW ONE Stop: 08/10/19 18:01 Last Admin: 08/10/19 17:39 Dose: 10 mg Documented by: [id number] Sodium Chloride (Nss 1000ml) 1,000 mls @ 250 mls/hr IV .Q4H CHAD Stop: 09/09/19 11:29 Last Infusion: 08/11/19 07:20 Dose: 0 mls/hr Documented by: [id number] Admin: 08/10/19 17:27 Dose: 250 mls/hr Documented by: [id number] Infusion: 08/10/19 16:15 Dose: 0 mls/hr Documented by: [id number] Admin: 08/10/19 12:26 Dose: 250 mls/hr Documented by: [id number] Ceftriaxone Sodium (Rocephin) 2,000 mg in 70 mls @ 140 mls/hr IV NOW STA Stop: 08/10/19 14:04 Last Infusion: 08/10/19 15:03 Dose: 0 mls/hr Documented by: [id number] Admin: 08/10/19 14:29 Dose: 140 mls/hr Documented by: [id number] Sodium Chloride (Nss 1000ml) 1,000 mls @ 999 mls/hr IV .Q1H1M ONE Stop: 08/10/19 14:45 Last Infusion: 08/10/19 15:02 Dose: 0 mls/hr Documented by: [id number] Admin: 08/10/19 14:29 Dose: 999 mls/hr Documented by: [id number] Pantoprazole Sodium 80 mg/ (Dextrose) 120 mls @ 480 mls/hr IV TODAY@1415 CHAD Stop: 08/10/19 14:29 Last Infusion: 08/10/19 14:36 Dose: 0 mls/hr Documented by: [id number] Admin: 08/10/19 14:18 Dose: 480 mls/hr Documented by: [id number] Pantoprazole Sodium 40 mg/ (Dextrose) 100 mls @ 20 mls/hr IV Q5H CHAD Stop: 08/10/19 19:29 Last Infusion: 08/11/19 07:19 Dose: 0 mls/hr Documented by: [id number] Admin: 08/10/19 15:13 Dose: 20 mls/hr Documented by: [id number] Ciprofloxacin (Cipro) 400 mg in 200 mls @ 100 mls/hr IV Q12H CHAD; Protocol Stop: 08/15/19 15:29 Last Infusion: 08/11/19 21:23 Dose: 0 mls/hr Documented by: [id number] Admin: 08/11/19 17:34 Dose: 100 mls/hr Documented by: [id number] Infusion: 08/11/19 08:27 Dose: 0 mls/hr Documented by: [id number] Admin: 08/11/19 06:02 Dose: 100 mls/hr Documented by: [id number] Infusion: 08/10/19 19:26 Dose: 0 mls/hr Documented by: [id number] Admin: 08/10/19 17:26 Dose: 100 mls/hr Documented by: [id number] Pantoprazole Sodium 40 mg/ (Dextrose) 100 mls @ 20 mls/hr IV Q5H CHAD Stop: 09/09/19 19:59 Last Admin: 08/11/19 20:33 Dose: 20 mls/hr Documented by: [id number] Infusion: 08/11/19 18:06 Dose: 20 mls/hr Documented by: [id number] Admin: 08/11/19 13:06 Dose: 20 mls/hr Documented by: [id number] Infusion: 08/11/19 13:06 Dose: 20 mls/hr Documented by: [id number] Admin: 08/11/19 08:29 Dose: 20 mls/hr Documented by: [id number] Infusion: 08/11/19 08:29 Dose: 20 mls/hr Documented by: [id number] Admin: 08/11/19 03:45 Dose: 20 mls/hr Documented by: [id number] Infusion: 08/11/19 03:45 Dose: 20 mls/hr Documented by: [id number] Admin: 08/10/19 23:03 Dose: 20 mls/hr Documented by: [id number] Infusion: 08/10/19 23:03 Dose: 20 mls/hr Documented by: [id number] Admin: 08/10/19 19:57 Dose: 20 mls/hr Documented by: [id number] Sodium Chloride (Nss 1000ml) 1,000 mls @ 125 mls/hr IV .Q8H CHAD Stop: 08/11/19 19:14 Last Infusion: 08/11/19 15:49 Dose: 0 mls/hr Documented by: [id number] Admin: 08/11/19 12:40 Dose: 125 mls/hr Documented by: [id number] Infusion: 08/11/19 11:45 Dose: 125 mls/hr Documented by: [id number] Admin: 08/11/19 03:45 Dose: 125 mls/hr Documented by: [id number] Infusion: 08/11/19 03:45 Dose: 125 mls/hr Documented by: [id number] Admin: 08/10/19 19:58 Dose: 125 mls/hr Documented by: [id number] Ceftriaxone Sodium 2,000 mg/ (Dextrose) 70 mls @ 100 mls/hr IV Q24H CHAD; Protocol Stop: 08/15/19 13:59 Last Infusion: 08/11/19 17:34 Dose: 0 mls/hr Documented by: [id number] Admin: 08/11/19 15:39 Dose: 100 mls/hr Documented by: [id number] Potassium Chloride (K Richar / Wtr) 10 meq in 100 mls @ 100 mls/hr IV Q1H CHAD Stop: 08/11/19 11:59 Last Infusion: 08/11/19 12:29 Dose: 0 mls/hr Documented by: [id number] Admin: 08/11/19 11:21 Dose: 100 mls/hr Documented by: [id number] Infusion: 08/11/19 11:21 Dose: 0 mls/hr Documented by: [id number] Admin: 08/11/19 09:42 Dose: 100 mls/hr Documented by: [id number] Octreotide Acetate 100 mcg/ (Syringe) 10 mls @ 3 mls/min IV NOW STA Stop: 08/11/19 15:12 Last Admin: 08/11/19 15:36 Dose: 3 mls/min Documented by: [id number] Octreotide Acetate 500 mcg/ (Sodium Chloride) 105 mls @ 10.5 mls/hr IV .Q10H CHAD Stop: 09/10/19 15:14 Last Admin: 08/11/19 15:46 Dose: 50 mcg/hr, 10.5 mls/hr Documented by: [id number] Famotidine 20 mg/ Syringe 5 mls @ 2.5 mls/min IV ONE ONE Stop: 08/11/19 22:01 Last Admin: 08/11/19 22:54 Dose: 2.5 mls/min Documented by: [id number] Ioversol (Optiray 320 100ml) 94 ml IV ONCE PRN PRN Reason: Interaction Checking Stop: 08/14/19 13:08 Last Admin: 08/10/19 13:10 Dose: 94 ml Documented by: [id number] Lidocaine HCl (Xylocaine 2%) Confirm Administered Dose 4 ml INFIL .STK-MED ONE Stop: 08/11/19 14:01 Last Admin: 08/11/19 15:35 Dose: Not Given Documented by: [id number] Lisinopril (Zestril) 20 mg PO DAILY@1200 CHAD Stop: 09/10/19 11:59 Last Admin: 08/11/19 15:35 Dose: 20 mg Documented by: [id number] Paroxetine HCl (Paxil) 20 mg PO DAILY@1200 CHAD Stop: 09/10/19 11:59 Last Admin: 08/11/19 15:35 Dose: 20 mg Documented by: [id number] Polyethylene Glycol/Electrolytes (Golytely) 8 dose PO NOW ONE Stop: 08/10/19 18:01 Last Admin: 08/10/19 17:41 Dose: 8 dose Documented by: [id number] Propofol (Diprivan) Confirm Administered Dose 400 mg IV .STK-MED ONE Stop: 08/11/19 14:01 Last Admin: 08/11/19 15:35 Dose: Not Given Documented by: [id number] Critical Care Time Critical Care Time: Yes Total Critical Care Time: 47 I have personally spent 47 minutes of critical care time in the direct management of this patient. This includes bedside care, interpretation of diagnostic studies, and testing, discussion with consultants, patient, and family members, and other required patient management activities. This 47 minutes is in excess of all separately billable procedures. Medical Decision Making Differential Diagnosis Differential diagnosis includes etiologies such as benign positional vertigo, d ehydration, hypovolemia, anemia, tumor, infection, hypoglycemia, electrolyte abnormalities, cardiac sources, intracerebral event, toxicologic, neurologic, as well as others were entertained. Medical Records Attestation: I reviewed the patient's medical records. Home Medications Current Medication List: was personally reviewed by me Laboratory Data Attestation: I reviewed the patient's lab results. Result diagrams: 08/11/19 09:14 08/11/19 03:26 Lab Results 08/10/19 08/10/19 08/10/19 Range/Units 11:38 11:38 11:38 WBC 23.72 H (4.8-10.8) K/uL RBC 3.89 L (4.2-5.4) M/uL Hgb 11.7 L (12.0-16.0) g/dL Hct 36.4 L (37-47) % MCV 93.6 (80-100) fL MCH 30.1 (25-34) pg MCHC 32.1 (32-36) g/dL RDW Std Deviation 50.7 H (36.4-46.3) fL RDW Coeff of Liz 14.9 H (11.5-14.5) % Plt Count 107 L (130-400) K/uL MPV 13.7 H (7.4-10.4) fL Immature Gran % (Auto) 0.3 % Neut % (Auto) 32.1 % Lymph % (Auto) 65.9 % [place] % (Auto) 1.6 % Eos % (Auto) 0.0 % Baso % (Auto) 0.1 % Immature Gran # (Auto) 0.06 H (0.00-0.02) K/uL Neut # (Auto) 7.64 H (1.4-6.5) K/uL Lymph # (Auto) 15.62 H (1.2-3.4) K/uL [place] # (Auto) 0.38 (0.11-0.59) K/uL Eos # (Auto) 0.00 (0-0.5) K/uL Baso # (Auto) 0.02 (0-0.2) K/uL Smudge Cells Present Blood Smear Review PT 11.3 (9.0-12.0) Seconds INR 1.1 (0.9-1.1) Sodium 142 (136-145) mmol/L Potassium 4.1 (3.5-5.1) mmol/L Chloride 107 (98-107) mmol/L Carbon Dioxide 28 (21-32) mmol/L Anion Gap 7.0 (3-11) BUN 39 H (7-18) mg/dl Creatinine 0.86 (0.6-1.2) mg/dl Est Cr Clr Drug Dosing 81.3 ml/min Est GFR ( Amer) 77.7 Est GFR (Non-Af Amer) 67.0 BUN/Creatinine Ratio 45.4 H (10-20) Glucose 122 H (70-99) mg/dl POC Lactic Acid Markus (0.90-1.70) mmol/L Calcium 8.9 (8.5-10.1) mg/dl Total Bilirubin 0.6 (0.2-1) mg/dl AST 23 (15-37) U/L ALT 23 (12-78) U/L Alkaline Phosphatase 59 (45-117) U/L Troponin I 0.065 H* (0-0.045) ng/ml NT-Pro-B Natriuret Pep 169 (0-900) pg/ml Total Protein 6.3 L (6.4-8.2) gm/dl Albumin 3.0 L (3.4-5.0) gm/dl Globulin 3.3 (2.5-4.0) gm/dl Albumin/Globulin Ratio 0.9 (0.9-2) Lipase 94 (73-393) U/L TSH 0.023 L (0.300-4.500) uIu/ml Urine Color Urine Appearance (Clear) Urine pH (4.5-7.5) POC Urine pH (4.5-7.5) Ur Specific [place] (1.000-1.030) Urine Protein (Negative) POC Urine Protein (Negative) Urine Glucose (UA) (Negative) POC Ur Glucose (UA) (Normal) Urine Ketones (Negative) POC Urine Ketones (Negative) Urine Blood (Negative) POC Urine Blood (Negative) Urine Nitrite (Negative) POC Urine Nitrite (Negative) Urine Bilirubin (Negative) POC Urine Bilirubin (Negative) Urine Urobilinogen (Negative) POC Urine Urobilinogen (Normal) Ur Leukocyte Esterase (Negative) POC U Leukocyte Esteras (Negative) Urine WBC (Auto) (0-5) /hpf Urine RBC (Auto) (0-4) /hpf U Hyaline Cast (Auto) (0-5) /lpf U Epithel Cells (Auto) (0-5) /lpf Urine Bacteria (Auto) (Negative) Urine Yeast 08/10/19 08/10/19 08/10/19 Range/Units 11:59 13:50 13:50 WBC (4.8-10.8) K/uL RBC (4.2-5.4) M/uL Hgb (12.0-16.0) g/dL Hct (37-47) % MCV (80-100) fL MCH (25-34) pg MCHC (32-36) g/dL RDW Std Deviation (36.4-46.3) fL RDW Coeff of Liz (11.5-14.5) % Plt Count (130-400) K/uL MPV (7.4-10.4) fL Immature Gran % (Auto) % Neut % (Auto) % Lymph % (Auto) % [place] % (Auto) % Eos % (Auto) % Baso % (Auto) % Immature Gran # (Auto) (0.00-0.02) K/uL Neut # (Auto) (1.4-6.5) K/uL Lymph # (Auto) (1.2-3.4) K/uL [place] # (Auto) (0.11-0.59) K/uL Eos # (Auto) (0-0.5) K/uL Baso # (Auto) (0-0.2) K/uL Smudge Cells Blood Smear Review PT (9.0-12.0) Seconds INR (0.9-1.1) Sodium (136-145) mmol/L Potassium (3.5-5.1) mmol/L Chloride (98-107) mmol/L Carbon Dioxide (21-32) mmol/L Anion Gap (3-11) BUN (7-18) mg/dl Creatinine (0.6-1.2) mg/dl Est Cr Clr Drug Dosing ml/min Est GFR ( Amer) Est GFR (Non-Af Amer) BUN/Creatinine Ratio (10-20) Glucose (70-99) mg/dl POC Lactic Acid Markus 2.84 H (0.90-1.70) mmol/L Calcium (8.5-10.1) mg/dl Total Bilirubin (0.2-1) mg/dl AST (15-37) U/L ALT (12-78) U/L Alkaline Phosphatase (45-117) U/L Troponin I (0-0.045) ng/ml NT-Pro-B Natriuret Pep (0-900) pg/ml Total Protein (6.4-8.2) gm/dl Albumin (3.4-5.0) gm/dl Globulin (2.5-4.0) gm/dl Albumin/Globulin Ratio (0.9-2) Lipase (73-393) U/L TSH (0.300-4.500) uIu/ml Urine Color Yellow Urine Appearance Clear (Clear) Urine pH 5.0 (4.5-7.5) POC Urine pH 5 (4.5-7.5) Ur Specific [place] 1.039 H (1.000-1.030) Urine Protein Negative (Negative) POC Urine Protein Trace H (Negative) Urine Glucose (UA) Negative (Negative) POC Ur Glucose (UA) Normal (Normal) Urine Ketones Negative (Negative) POC Urine Ketones Negative (Negative) Urine Blood 3+ H (Negative) POC Urine Blood 250 H (Negative) Urine Nitrite Negative (Negative) POC Urine Nitrite Negative (Negative) Urine Bilirubin Negative (Negative) POC Urine Bilirubin Negative (Negative) Urine Urobilinogen Negative (Negative) POC Urine Urobilinogen Normal (Normal) Ur Leukocyte Esterase Negative (Negative) POC U Leukocyte Esteras Negative (Negative) Urine WBC (Auto) 1-5 (0-5) /hpf Urine RBC (Auto) 5-10 H (0-4) /hpf U Hyaline Cast (Auto) 1-5 (0-5) /lpf U Epithel Cells (Auto) >30 H (0-5) /lpf Urine Bacteria (Auto) Negative (Negative) Urine Yeast Not Reportable 08/10/19 Range/Units 14:13 WBC (4.8-10.8) K/uL RBC (4.2-5.4) M/uL Hgb (12.0-16.0) g/dL Hct (37-47) % MCV (80-100) fL MCH (25-34) pg MCHC (32-36) g/dL RDW Std Deviation (36.4-46.3) fL RDW Coeff of Liz (11.5-14.5) % Plt Count (130-400) K/uL MPV (7.4-10.4) fL Immature Gran % (Auto) % Neut % (Auto) % Lymph % (Auto) % [place] % (Auto) % Eos % (Auto) % Baso % (Auto) % Immature Gran # (Auto) (0.00-0.02) K/uL Neut # (Auto) (1.4-6.5) K/uL Lymph # (Auto) (1.2-3.4) K/uL [place] # (Auto) (0.11-0.59) K/uL Eos # (Auto) (0-0.5) K/uL Baso # (Auto) (0-0.2) K/uL Smudge Cells Blood Smear Review PT (9.0-12.0) Seconds INR (0.9-1.1) Sodium (136-145) mmol/L Potassium (3.5-5.1) mmol/L Chloride (98-107) mmol/L Carbon Dioxide (21-32) mmol/L Anion Gap (3-11) BUN (7-18) mg/dl Creatinine (0.6-1.2) mg/dl Est Cr Clr Drug Dosing ml/min Est GFR ( Amer) Est GFR (Non-Af Amer) BUN/Creatinine Ratio (10-20) Glucose (70-99) mg/dl POC Lactic Acid Markus 3.32 H (0.90-1.70) mmol/L Calcium (8.5-10.1) mg/dl Total Bilirubin (0.2-1) mg/dl AST (15-37) U/L ALT (12-78) U/L Alkaline Phosphatase (45-117) U/L Troponin I (0-0.045) ng/ml NT-Pro-B Natriuret Pep (0-900) pg/ml Total Protein (6.4-8.2) gm/dl Albumin (3.4-5.0) gm/dl Globulin (2.5-4.0) gm/dl Albumin/Globulin Ratio (0.9-2) Lipase (73-393) U/L TSH (0.300-4.500) uIu/ml Urine Color Urine Appearance (Clear) Urine pH (4.5-7.5) POC Urine pH (4.5-7.5) Ur Specific [place] (1.000-1.030) Urine Protein (Negative) POC Urine Protein (Negative) Urine Glucose (UA) (Negative) POC Ur Glucose (UA) (Normal) Urine Ketones (Negative) POC Urine Ketones (Negative) Urine Blood (Negative) POC Urine Blood (Negative) Urine Nitrite (Negative) POC Urine Nitrite (Negative) Urine Bilirubin (Negative) POC Urine Bilirubin (Negative) Urine Urobilinogen (Negative) POC Urine Urobilinogen (Normal) Ur Leukocyte Esterase (Negative) POC U Leukocyte Esteras (Negative) Urine WBC (Auto) (0-5) /hpf Urine RBC (Auto) (0-4) /hpf U Hyaline Cast (Auto) (0-5) /lpf U Epithel Cells (Auto) (0-5) /lpf Urine Bacteria (Auto) (Negative) Urine Yeast Imaging Data Radiologist's Impression: Radiology results as stated below per my review and the radiologist's interpretation: XR chest 1V portable CLINICAL HISTORY: 73 years-old Female presenting with lightheaded. TECHNIQUE: Portable upright AP view of the chest was obtained. COMPARISON: 03/20/2006. FINDINGS: Atherosclerosis of the aortic arch. Cardiac silhouette top normal in size. Mildly low lung volumes. No focal opacity. No large effusion or pneumothorax. Degenerative changes of the thoracic spine. Degenerative changes of the glenohumeral joints. Upper abdomen normal. IMPRESSION: 1. Mildly low lung lines. Otherwise no acute cardiopulmonary disease. Electronically signed by: Ben Canada M.D. 08/10/2019 12:[address] abd pelvis IV con only CLINICAL HISTORY: 73 years-old Female presenting with gi bleed, leukocytosis. TECHNIQUE: Multidetector CT of the abdomen and pelvis was performed after the administration of intravenous contrast. IV contrast: 94 mL of Optiray 320. One or more dose lowering techniques were used consistent with the principles of ALARA (as low as reasonably achievable), including automatic exposure control, mA or kV adjustment to individual patient size, and/or use of iterative reconstruction. COMPARISON: None. CT DOSE (mGy.cm): The estimated cumulative dose is 1723.29 mGy.cm. FINDINGS: Egg Separator topogram: Cholecystectomy clips. Lung bases: Normal heart size. Coronary artery and aortic valve calcification. No pericardial or pleural effusion. Minimal dependent changes likely atelectasis. Liver: Cirrhotic morphology of the liver with hypertrophy of the left hepatic lobe. Biliary: No intrahepatic or extrahepatic biliary ductal dilatation. Gallbladder surgically absent. Pancreas: Mild parenchymal atrophy. Spleen: Top normal in size measuring 13.1 cm in maximal sagittal dimension. Adrenal glands: Normal. 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 Right kidney normal. No nephrolithiasis or hydronephrosis. Ureters nondistended. Bladder: Incompletely evaluated secondary to underdistention. Pelvic organs: Uterus and ovaries normal. Bowel: Normal appendix. No bowel obstruction. Unobstructed small bowel contained within the moderate sized umbilical hernia. Peritoneal cavity: No free fluid or intraperitoneal gas. Lymph nodes: Mildly prominent portal caval and tigre hepatal lymph nodes likely reactive. No pathologically enlarged lymph nodes in the abdomen or pelvis. Vasculature: Atherosclerosis of the normal caliber abdominal aorta. IVC patent. Paraesophageal and gastric varices. Abdominal wall: Recanalization of the periumbilical vein. Musculoskeletal: Degenerative changes of the spine. IMPRESSION: 1. Cirrhosis with portal hypertension evidenced by varices and borderline splenomegaly. 2. Prominent gastric varices. This could be a potential site of gastrointestinal hemorrhage. 3. No other evidence of acute intra-abdominal pathology. Electronically signed by: Ben Canada M.D. 08/10/2019 1:22 PM ECG Data Attestation: I personally reviewed and interpreted this ECG as follows: Indication: + other (dizziness) Rate (beats per minute): 77 Rhythm: + sinus rhythm ECG Brea: + Normal ECG ST segments: no ST depression and no ST elevation ECG Findings: + Other (normal intervals); no PACs and no PVCs Blood Pressure Blood Pressure Findings: Normal blood pressure Blood Pressure Disposition: did not require urgent referral MDM Narrative Pt here well appearing and initially unclear etiology of symptoms. Pt c/o dizziness/fatigue mostly, felt BRBPR likely from hemorrhoids. Labs sent and IV started. Only mild anemia noted, however significant leukocytosis revealed. Because of this, pt sent for CT imaging and additional labs added. Lactic acid mildly elevated, however initially unclear if from dehydration vs infection vs ischemia. Pt was being given gentle IVF rehydration initially as her BP was reassuring and she only appeared mildly dehydrated clinically. While awaiting CT results, I performed rectal exam which was positive. Rocephin added due to leukocytosis after cultures drawn. No evidence of pulmonary or urinary infection. CT concerning for cirrhosis and possible esophageal varices which may explain GI bleed. Pt started on protonix in addition and additional IVF added. Pt denied any hx of liver dysfunction. Mild thrombocytopenia noted. LFT's normal. Of note, troponin also elevated, EKG without acute changes. Pt with risk factors for ACS, however no prior hx or evaluation. Pt does take daily ASA which would contribute to bleeding and thrombocytopenia. Case discussed with hospitalist for additional mgmt. Pt made aware of all results and was in agreement with the plan. VS stable while in the ER. I do not feel pt required emergent blood transfusion at this time. Impression & Plan GI bleed, Leukocytosis, Anemia, Dizziness, Esophageal varices, Elevated troponin, Cirrhosis of liver, Thrombocytopenia Discharge Plan Visit Data *Final* Discharge Date/Time: 08/10/19 16:17 Chief Complaint: Illness Stated Complaint: weakness/bloody stool ED Provider: Aminata Grant Discharge Problem: GI bleed, Leukocytosis, Anemia, Dizziness, Esophageal varices, Elevated troponin, Cirrhosis of liver, Thrombocytopenia Patient Disposition: Admitted As Inpatient Condition: Fair Discharge Instructions Interventions: ED Discharge Assessment Last Done: 08/10/19 16:17 Discharge Problem: GI bleed Qualifiers: GI bleed type/associated pathology: unspecified gastrointestinal hemorrhage type Qualified Code(s): K92.2 - Gastrointestinal hemorrhage, unspecified Leukocytosis Qualifiers: Leukocytosis type: unspecified Qualified Code(s): D72.829 - Elevated white blood cell count, unspecified Anemia Qualifiers: Anemia type: unspecified type Qualified Code(s): D64.9 - Anemia, unspecified Esophageal varices Qualifiers: Esophageal varices type: unspecified type Esophageal varices bleeding: without bleeding Qualified Code(s): I85.00 - Esophageal varices without bleeding Cirrhosis of liver Qualifiers: Hepatic cirrhosis type: unspecified hepatic cirrhosis Ascites presence: without ascites Qualified Code(s): K74.60 - Unspecified cirrhosis of liver The alciraibe's documentation has been prepared under my direction and personally reviewed by me in its entirety. I confirm that the note above accurately reflects all work, treatment, procedures, and medical decision making performed by me.
== END 2019-08-11 23:00 | disposition short-term general hospital (02) | DRG 378 ==
LOC: ED 10:26 → SUATTDRO 14:46 → 2S 14:46